=== PATIENT | male | born 1965 | race Caucasian/White ===

== ENCOUNTER → 2020-01-14 | Outpatient (CLI) | payer BC ==
--- NOTE | 2020-01-14 13:03 | RAD ---
Exam: VENOUS LOWER EXTREMITY RIGHT Indication: Reason: RT LEG PAIN AND SWELLING AROUND KNEE S/P FALL / Spl. Instructions: / History: Technique: Color-flow and pulsed wave duplex ultrasound with compression of venous structures of the right lower extremity. Comparison: None Available. Findings: Duplex ultrasound with compression of the deep venous structures of the right lower extremity from the common femoral vein through the popliteal vein is negative for DVT. The posterior tibial and peroneal veins are segmentally visualized and patent where seen. Normal venous waveforms and augmentation are noted throughout. No mass or fluid collection in the area of discomfort along the medial knee. Impression: No evidence for DVT in the right lower extremity. No mass or fluid collection in the area of discomfort along the medial knee. Electronically signed by: Roberto Valdes MD (01/14/2020 1:00 PM) [id number]
== END ==
LOC: US 12:00
PROVIDERS: ATTEND Nurse Practitioner
DX: M79.89 Other specified soft tissue disorders (principal); M79.604 Pain in right leg
CPT/HCPCS: 93971